=== PATIENT | male | born 1950 | race Caucasian/White ===

== ENCOUNTER 2021-07-20 17:32 | Outpatient (CLI) | payer MEDICARE, SELFPAY ==
[2021-07-20 18:10] LABS: Basophils Absolute Auto 0.1 K/mm3 (0.0-0.1); Basophils Percent Auto 0.8 % (0.2-1.2); Eosinophils Absolute Auto 0.2 K/mm3 (0-0.3); Eosinophils Percent Auto 2.6 % (0-4.4); Hematocrit 42.5 % (42.0-52.0); Hemoglobin 14.7 g/dL (14.0-18.0); Immature Granulocyte Absolute 0.02 K/mm3 (0.00-0.031); Immature Granulocyte Percent A 0.3 % (0-0.5); Lymphocytes Absolute Auto 2.82 K/mm3 (0.9-3.2); Mean Corpuscular HGB Conc 34.6 g/dl (32-36); Mean Corpuscular Hemoglobin 31.8 pg (26-34); Mean Platelet Volume 9.7 fl (7.4-10.4); Monocytes Absolute Auto 0.7 K/mm3 (0.1-0.6); Monocytes Percent Auto 9.4 % (2.6-8.5); Neutrophils Percent Auto 50.9 % (45.5-73.1); Platelet Count Result 199 k/mm3 (150-375); Red Blood Count 4.62 M/mm3 (4.6-6.20); Red Cell Distribution Width 12.7 % (11.5-14.5); White Blood Count 7.8 K/mm3 (4.5-10.0)
[2021-07-20 18:23] LABS: Alanine Aminotransferase 27 U/L (4-50); Albumin Level 4.4 g/dL (3.5-5.1); Alkaline Phosphatase 101 U/L (38-126); Anion Gap 9 mmol/L (8-16); Aspartate Amino Transferase 32 U/L (17-59); Bilirubin,Total 0.5 mg/dL (0.2-1.3); Blood Urea Nitrogen 15 mg/dL (9-20); Calcium 9.2 mg/dL (8.4-10.2); Carbon Dioxide 26 mmol/L (22-30); Chloride 105 mmol/L (98-107); Cholesterol 191 mg/dL (0-200); Estimated Glomerular Filt Rate > 60; Glucose 85 mg/dL (65-110); HDL Direct 42 mg/dL; Potassium 4.4 mmol/L (3.4-5.0); Sodium 140 mmol/L (137-145); Triglycerides 92 mg/dL (<150)
[2021-07-20 18:34] LABS: LDL Cholesterol Direct 132 mg/dL
[2021-07-25 16:28] LABS: Alpha Fetoprotein Tumor Marker 2.8 ng/mL (<6.1)
== END 2021-07-20 17:33 | disposition home or self-care (01) ==
PROVIDERS: PCP Internal Medicine; Visit Provider Internal Medicine
DX: K74.69 Other cirrhosis of liver (principal); E78.2 Mixed hyperlipidemia
CPT/HCPCS: 36415; 80053; 80061; 82105; 85025

== ENCOUNTER 2022-11-08 21:22 | Observation (INO) | payer MEDICARE, SELFPAY ==
[2022-11-08] VITALS (11 sets, daily range): BP systolic 134–164; BP diastolic 77–85; PULSE 80–118; RESP 15–25; TEMP 37.7; O2SAT 93–99
--- NOTE | ~2022-11-08 | XR_ITS ---
EXAMINATION: XR chest 1V portable Exam Date/Time: 11/08/2022 22:32 CDT HISTORY: SOB/cough FOR 3 DAYS, FEVER, HTN Comparison: None available. RESULT: Lines, tubes, and devices: Cholecystectomy clips. Lungs and pleura: Right lower lung scar/atelectasis. Calcified pulmonary granulomas. Cardiomediastinal silhouette: Stable. Other: No acute osseous or upper abdominal finding. IMPRESSION: No acute cardiopulmonary process. Reviewed, dictated and finalized at location K.
--- NOTE | 2022-11-08 21:28 | ECG_ITS ---
Measurements Intervals [place] Rate: 87 P: -1 WI: 196 QRS: -44 QRSD: 100 T: 44 QT: 358 QTc: 432 Interpretive Statements SINUS RHYTHM MARKED LEFT AXIS DEVIATION [QRS AXIS < -30] PATTERN CONSISTENT WITH PULMONARY DISEASE ABNORMAL ECG NO PREVIOUS ECG AVAILABLE FOR COMPARISON Electronically Signed On 11-09-2022 8:58:20 CDT by Rhett Bone M.D.
[2022-11-08 22:16] LABS: Influenza A QL RT-PCR Negative (Negative); Influenza B QL RT-PCR Negative (Negative); SARS-CoV-2 RNA PCR Negative (Negative)
[2022-11-08] MEDS: ALBUTEROL SULFATE NEB 2.5 MG/3 ML INH 5 MG INHALATION (23:06)
[2022-11-08] MEDS: IPRATROPIUM BR 0.02% INH SOLN 0.5 MG/2.5 ML VIAL 1 MG INHALATION (23:06)
--- NOTE | 2022-11-08 23:44 | ED.GENADULT ---
HPI - General Adult General Chief complaint: Upper Respiratory Infection Stated complaint: upper resp symptoms Time Seen by Provider: 11/08/22 22:13 History of Present Illness HPI narrative: This is a 71-year-old male with 3 days of cough and URI symptoms. He had a fever 100.9 at home. He has shortness of breath and chest pain when he coughs. He has taken some medicine with no relief. Denies other complaints. Related Data Allergies Allergy/AdvReac Type Severity Reaction Status Date / Time No Known Allergies Allergy Verified 11/09/22 00:46 [facility] Past Medical History Medical History BPH (benign prostatic hyperplasia) Hypertension Exam Narrative: APPEARANCE: patient looks unwell, 4-5 word dyspnea Head: atraumatic. EYES: EOMI, NOSE: Atraumatic NECK: Trachea midline RESPIRATORY: tachypneic, scattered rhonchi in the right, cough CARDIOVASCULAR: RRR, no peripheral edema ABDOMINAL: Non-distended nontender no guarding rebound MUSCULOSKELETAl: No obvious deformities NEURO: Alert. Moving 4/4 extremities SKIN:: Warm, dry. Normal color PSYCHIATRIC: Normal affect Course Vital Signs Vital signs: Vital Signs Temperature 99.9 F H 11/08/22 21:25 Pulse Rate 94 11/08/22 21:25 Respiratory Rate 19 11/08/22 21:25 Blood Pressure 164/85 H 11/08/22 21:25 Pulse Oximetry 95 11/08/22 21:25 Oxygen Delivery Room Air 11/08/22 21:25 Temperature 99.9 F H 11/08/22 21:25 Pulse Rate 98 11/09/22 00:45 Respiratory Rate 16 11/09/22 00:45 Blood Pressure 148/74 H 11/09/22 00:45 Pulse Oximetry 94 11/09/22 00:45 Oxygen Delivery Room Air 11/08/22 21:25 Medical Decision Making [facility] Narrative Medical decision making narrative: -Presentation: 71-year-old male presenting with cough and fever. -DDX includes but is not limited to: Pneumonia, URI, viral syndrome -Co-morbidities complicating care: hypertension, -Social determinants of health: patient is a retired pack worker supervisor. lives with his -External Chart Review: none -Hx from independent Sources: none -Discussion of Management/Consultants: Dilan-hospitalist -Independent interpretation of studies: chest x-ray was unremarkable. Chest x-rays are not sensitive for pneumonia. CBC and metabolic panel were within acceptable limits. Viral swabs were negative. Independent EKG interpretation: Rhythm [sinus], Rate [87], Ellis -[normal], [place] -[normal], QRS [narrow], QTC [normal], T waves -[negative for concerning inversions], ST Segments - [Negative for concerning elevations] Final interpretations: [Normal Sinus Rhythm] Dx tests considered but not ordered: -Procedures: -Interventions: Motrin, Tylenol, Robitussin, DuoNeb, ceftriaxone, Azithro -Shared decision making / Disposition: Chest x-ray was clear but the patient looks unwell. Had him do an ambulatory pulse ox test which resulted in desaturation to 89% and increase of 20 bpm in his heart rate. Patient will be admitted to the hospital for community-acquired pneumonia. -RX Vital Signs Vital Signs: Vital Signs Temperature 99.9 F H 11/08/22 21:25 Pulse Rate 94 11/08/22 21:25 Respiratory Rate 19 11/08/22 21:25 Blood Pressure 164/85 H 11/08/22 21:25 Pulse Oximetry 95 11/08/22 21:25 Oxygen Delivery Room Air 11/08/22 21:25 Temperature 99.9 F H 11/08/22 21:25 Pulse Rate 98 11/09/22 00:45 Respiratory Rate 16 11/09/22 00:45 Blood Pressure 148/74 H 11/09/22 00:45 Pulse Oximetry 94 11/09/22 00:45 Oxygen Delivery Room Air 11/08/22 21:25 Lab Data 11/09/22 00:05 11/09/22 00:05 Labs: Lab Results 11/08/22 11/09/22 Range/Units 21:30 00:05 WBC 7.8 (4.5-10.0) K/mm3 RBC 4.59 L (4.6-6.20) M/mm3 Hgb 14.4 (14.0-18.0) g/dL Hct 42.3 (42.0-52.0) % MCV 92.2 (80-100) fl MCH 31.4 (26-34) pg MCHC 34.0 (32-36) g/dl
[2022-11-08] MEDS: IBUPROFEN 400 MG TABLET 800 MG PO (23:49)
[2022-11-08] MEDS: ACETAMINOPHEN 500 MG TABLET 1000 MG PO (23:49)
[2022-11-08] MEDS: guaiFENesin/DEXTROMETHORPHAN 10 ML UDC PO (23:52)
[2022-11-09] VITALS (10 sets, daily range): BP systolic 112–148; BP diastolic 67–74; PULSE 68–107; RESP 15–25; TEMP 35.7–36.7; O2SAT 91–95; BMI 32.5
--- NOTE | 2022-11-09 | ECHO_ITS ---
Patient Info Name: Kota Fletcher Age: 71 years : 1950 Gender: Male Ht: 69 in Wt: 220 lbs BSA: 2.24 m2 HR: 72 bpm BP: 112 / 67 mmHg Technical Quality: Fair Exam Date: 11/09/2022 2:00 PM Exam Location: [facility] Exam Room: 301 Patient Status: Inpatient Admit Date: 11/09/2022 Staff Ordering Physician: Bebe Elizabeth MD Railroad Accountant: Francheska Adams RDCS Attending Provider: Harjinder Kong MD Exam Type: CA echo doppler color flow Study Info Indications - sob Complete two-dimensional, color flow and Doppler transthoracic echocardiogram is performed. Summary 1. Complete two-dimensional, color flow and Doppler transthoracic echocardiogram is performed. 2. Left ventricular chamber dimension is normal. 3. Left ventricular systolic function is normal, estimated at 60-65%. 4. The left ventricular diastolic function is grade I diastolic dysfunction. 5. E/e' 8 is minimally elevated. 6. There is mild aortic valve sclerosis. 7. No pulmonary hypertension, estimated pulmonary arterial systolic pressure is 27 mmHg. Left Ventricle E/e' 8 is minimally elevated. Left ventricular chamber dimension is normal. Left ventricular systolic function is normal, estimated at 60-65%. The left ventricular diastolic function is grade I diastolic dysfunction. Right Ventricle Right ventricular chamber dimension is normal. Right ventricular systolic function is normal. Left Atria Left atrial chamber dimension is normal. Right Atria Right atrial chamber dimension is normal. Aortic Valve The aortic valve is trileaflet. There is mild aortic valve sclerosis. There is no aortic valve stenosis. There is trace aortic valve regurgitation. Pulmonic Valve There is no pulmonic regurgitation. Mitral Valve There is no mitral valve stenosis. There is no mitral valve regurgitation. Tricuspid Valve There is no tricuspid valve regurgitation. No pulmonary hypertension, estimated pulmonary arterial systolic pressure is 27 mmHg. Pericardium/Pleural There is no pericardial effusion. Inferior Vena Cava Normal inferior vena cava with >50% collapse upon inspiration consistent with normal right atrial pressure, 5 mmHg. Aorta The aortic root size at the sinus of Valsalva is normal. Left Ventricular Outflow Tract Name Value Normal LVOT 2D LVOT Diameter 2.1 cm LVOT Doppler LVOT Peak Gradient 4 mmHg LVOT Mean Gradient 3 mmHg LVOT VTI 22 cm LVOT VTI/AV VTI Ratio 0.9 LVOT Stroke Volume 72 ml LVOT CO 16.9 l/min LVOT CI 7.6 l/min/m2 Pulmonic Valve Name Value Normal PV Doppler PV Peak Gradient 3 mmHg Mitral Valve Name Value
[2022-11-09 00:32] LABS: Basophils Percent Auto 0.4 % (0.2-1.2); Eosinophils Absolute Auto 0.2 K/mm3 (0-0.3); Eosinophils Percent Auto 2.7 % (0-4.4); Hematocrit 42.3 % (42.0-52.0); Hemoglobin 14.4 g/dL (14.0-18.0); Immature Granulocyte Absolute 0.02 K/mm3 (0.00-0.031); Immature Granulocyte Percent A 0.3 % (0-0.5); Lymphocytes Absolute Auto 3.02 K/mm3 (0.9-3.2); Lymphocytes Percent Auto 38.6 % (18.3-44.2); Mean Corpuscular Hemoglobin 31.4 pg (26-34); Mean Corpuscular Volume 92.2 fl (80-100); Monocytes Absolute Auto 0.9 K/mm3 (0.1-0.6); Monocytes Percent Auto 11.5 % (2.6-8.5); Neutrophils Absolute Auto 3.6 K/mm3 (1.3-6.7); Neutrophils Percent Auto 46.5 % (45.5-73.1); Platelet Count Result 162 k/mm3 (150-375); Red Blood Count 4.59 M/mm3 (4.6-6.20); Red Cell Distribution Width 12.6 % (11.5-14.5); White Blood Count 7.8 K/mm3 (4.5-10.0)
[2022-11-09 00:45] LABS: Anion Gap 8 mmol/L (8-16); Blood Urea Nitrogen 19 mg/dL (9-20); Calcium 8.5 mg/dL (8.4-10.2); Carbon Dioxide 23 mmol/L (22-30); Chloride 104 mmol/L (98-107); Estimated CRCL calculation 60 ml/min; Estimated Glomerular Filt Rate 60; Glucose 124 mg/dL (65-110); Potassium 3.9 mmol/L (3.4-5.0); Sodium 135 mmol/L (137-145)
--- NOTE | 2022-11-09 01:28 | PM.IMHP ---
H&P: HPI History of Present Illness Date/Time: 11/09/22 01:28 Chief Complaint: Cough Narrative: This is a 71-year-old male with past medical history significant for hypertension. Presents to the emergency room due to 3 days of cough dry, fevers, chills, generalized malaise, body aches and pains, poor appetite, shortness of breath. While in the emergency room patient received breathing treatment and when he was given the road test his oxygen saturation dropped significantly to 80% range and decision was made to admit the patient for further evaluation management and treatment. Patient tried several things at home with no results finally decided to come to the emergency room preliminary workup was significant for x-ray was reported as: EXAMINATION:? XR chest 1V portable Exam Date/Time:? 11/08/2022 22:32 CDT HISTORY: SOB/cough FOR 3 DAYS, FEVER, HTN ? Comparison:? None available. RESULT: Lines, tubes, and devices:? Cholecystectomy clips. Lungs and pleura:? Right lower lung scar/atelectasis. Calcified pulmonary granulomas. Cardiomediastinal silhouette:? Stable. Other:? No acute osseous or upper abdominal finding. ? IMPRESSION: No acute cardiopulmonary process. Review of Systems Review of Systems: Dry cough, shows shortness of breath, generalized malaise, chills, fevers, rigors, body aches and pains Constitutional: Constitutional: Reports chills, Reports fatigue, Reports fever(s), Reports lethargy, Reports malaise, Reports night sweats, Reports poor appetite and Reports weakness Eyes: Eyes: Denies change in vision ENT: Denies dysphagia and Denies odynophagia Cardiovascular: Cardiovascular: Denies chest pain, Denies leg edema, Denies palpitations and Denies dyspnea on exertion Respiratory: Respiratory: Denies change in phlegm color, Denies chest congestion, Reports cough, Denies excessive phlegm production, Reports dyspnea and Reports wheezing Gastrointestinal: Gastrointestinal: Denies abdominal pain, Denies dyspepsia, Denies heartburn, Denies diarrhea, Denies nausea and Denies vomiting Genitourinary: Genitourinary: Reports dysuria Musculoskeletal: Musculoskeletal: Reports myalgias and Reports muscle weakness Integumentary/Breasts: Skin/Breast: Denies rash Neurologic: Denies focal weakness and Denies Sensory deficit (Neuro) Psychiatric: Psychiatric: Reports no additional psychiatric complaints and Reports as per HPI Endocrine: Endocrine: Denies cold intolerance, Denies fatigue, Denies flushing, Denies heat intolerance, Denies polyphagia, Denies polydipsia and Denies palpitations Hematologic/Lymphatic: Hematologic/Lymphatic: Reports no additional hematologic/lymphatic complaints and Reports as per HPI Allergic/Immunologic: Allergic/Immunologic: Reports no additional allergic/immunologic complaints and Reports as per HPI PMFSH Past Medical History Medical History BPH (benign prostatic hyperplasia) Hypertension Meds Home Medications and Allergies Home Medications Medication Instructions Recorded Confirmed Type lisinopril 20 mg tablet 20 mg PO DAILY 11/09/22 11/09/22 History oxybutynin chloride 10 mg 10 mg PO DAILY 11/09/22 11/09/22 History tablet,extended release 24 hr verapamil 180 mg tablet,extended 180 mg PO DAILY 11/09/22 11/09/22 History release Allergies Allergy/AdvReac Type Severity Reaction Status Date / Time No Known Allergies Allergy Verified 11/09/22 00:46 Vital Signs Vital Signs - 24 hr 11/08/22 21:25 11/08/22 23:07 11/08/22 23:41 Temperature 99.9 F H Pulse Rate 94 84 101 H Respiratory Rate 19 21 H 20 Blood Pressure 164/85 H Pulse Oximetry 95 Oxygen Delivery Room Air 11/09/22 00:45 Temperature Pulse Rate 98 Respiratory Rate 16 Blood Pressure 148/74 H Pulse Oximetry 94 Oxygen Delivery Exam Narrative: Patient is laying in a stretcher Const: General: comfortable, no acut
--- NOTE | 2022-11-09 02:42 | PC.NURSE ---
Patient arrived on 3 Med-Surg on 02:35
[2022-11-09] MEDS: ENOXAPARIN 40 MG/0.4 ML SYRINGE SUB-Q (09:12)
[2022-11-09] MEDS: oxyBUTYnin CHLORIDE XL 5 MG TAB.ER.24 10 MG PO (11:37)
[2022-11-09] MEDS: VERAPAMIL HCL 180 MG TABLET ER PO (11:37)
[2022-11-09] MEDS: BENZONATATE 100 MG CAPSULE 200 MG PO (11:37)
[2022-11-09] MEDS: lisinopriL 20 MG TABLET PO (11:37)
[2022-11-09] MEDS: guaiFENesin 600 MG/DEXTROMETHORPHAN 30 MG SR TAB 12 HR 1 TAB PO (11:37)
[2022-11-09] MEDS: ACETAMINOPHEN 325 MG TABLET 650 MG PO (12:33)
--- NOTE | 2022-11-09 15:17 | PM.DS ---
DS: Admitting Diagnosis Discharge Date 11/09/22 Admitting Diagnosis Cough DS: Discharge Diagnosis Discharge Diagnosis (1) Hypertension: Code(s): I10 - Essential (primary) hypertension Status: Acute (2) Cough: Code(s): R05.9 - Cough, unspecified Status: Acute DS: Summary Hospital Course Reason for hospitalization: Cough Generalized weakness Hospital Course: 71-year-old male with past medical history significant for hypertension presented to ER due to 3 days of cough dry, fevers, chills, generalized malaise,, tested negative for COVID flu, CXR was unremarkable, echo was unremarkable. Started on cough suppressant. his symptoms could be likely 2/2 viral PNA. Has been feeling better, discharged home in stable condition. Status at Discharge Functional status at discharge: independent ambulation Overall status at discharge: patient is back to baseline Time Spent with Patient Time attestation: Total time spent providing and/or coordinating discharge services: Time spent: Greater than 30 minutes Exam Const: General: comfortable HENMT: Mouth: Yes moist mucous membranes Eyes: Sclera: sclerae normal Pupils: Equal, round and reactive pupils present Neck: Neck: supple Resp: Effort & Inspection: normal respiratory effort Auscultation: clear to auscultation bilaterally Cardio: Rate: regular rate Rhythm: regular rhythm GI: GI Palp: Yes Soft to palpation Auscultation: normal bowel sounds Skin: General skin exam: normal color Extrem: General: normal to inspection Psych: Mental Status: mental status grossly normal DS: Data Data Completed and Pending Labs on day of discharge: Labs from last 24 hours 11/09/22 11/08/22 00:05 21:30 WBC 7.8 RBC 4.59 L Hgb 14.4 Hct 42.3 MCV 92.2 MCH 31.4 MCHC 34.0 RDW 12.6 Plt Count 162 MPV 10.0 Immature Gran % (Auto) 0.3 Neut % (Auto) 46.5 Lymph % (Auto) 38.6 [place] % (Auto) 11.5 H Eos % (Auto) 2.7 Baso % (Auto) 0.4 Lymph # (Auto) 3.02 [place] # (Auto) 0.9 H Eos # (Auto) 0.2 Baso # (Auto) 0.0 Abs Immat Gran (auto) 0.02 Absolute Neuts (auto) 3.6 Absolute Nucleated RBC 0.0 Nucleated RBC % 0.0 Sodium 135 L Potassium 3.9 Chloride 104 Carbon Dioxide 23 Anion Gap 8 BUN 19 Creatinine 1.20 Estim Creat Clear Calc 60 Estimated GFR 60 Glucose 124 H Calcium 8.5 Influenza A (RT-PCR) Negative Influenza B (RT-PCR) Negative SARS-CoV-2 RNA (RT-PCR) Negative Discharge Plan Discharge Attending physician on discharge: Bebe Elizabeth Discharging Clinician: Bebe Elizabeth Patient Disposition: Home, Self-Care Activity: as tolerated Diet: as tolerated Patient Instructions: Antibiotic Form Stand Alone Forms: General Discharge Information Follow-up/Referrals: Gail,Neel No MD [Primary Care Provider] - 2 Weeks Discharge Medications: New Mucinex DM 30-600 mg Tablet Extended Release 12 Hr 1 tab PO Q12HR Qty: 20 0RF Continued oxybutynin chloride 10 mg tablet extended release 24hr 10 mg PO DAILY lisinopril 20 mg tablet 20 mg PO DAILY verapamil 180 mg tablet extended release 180 mg PO DAILY alprazolam 0.5 mg tablet 0.5 mg PO BID PRN (Reason: Anxiety) Date of admission: 11/09/22 01:30 Primary Care Provider: Gail,Neel No Admitting Provider: Harjinder Kong V. Attending physician on admission: Harjinder Kong V. Condition: Improved [facility] Discharge Hospital Discharge: 28711 Hosp D/C >30 Min
--- NOTE | 2022-11-09 15:21 | PCCCNOTE ---
On 11/09/22, the student, [Karissa Resendiz], provided care and completed [facility] documentation on this patient. I have reviewed the student's documentation and agree with the findings.
== END 2022-11-09 16:27 | disposition home or self-care (01) ==
LOC: ANHED 11-09 00:01 → ANH3MEDSUR 11-09 15:17
PROVIDERS: Admitting Provider Internal Medicine; Emergency Provider Emergency Medicine; PCP Internal Medicine; Visit Provider Internal Medicine
DX: J18.9 Pneumonia, unspecified organism (principal); I11.9 Hypertensive heart disease without heart failure; N40.0 Benign prostatic hyperplasia without lower urinary tract symptoms; R06.82 Tachypnea, not elsewhere classified; R94.31 Abnormal electrocardiogram [ECG] [EKG]; Z20.822 Contact with and (suspected) exposure to COVID-19; I35.8 Other nonrheumatic aortic valve disorders; R63.0 Anorexia; Z68.32 Body mass index [BMI] 32.0-32.9, adult; Z79.899 Other long term (current) drug therapy
CPT/HCPCS: 36415; 71045; 80048; 85025; 87636; 93005; 93306; 94640; 96365; 96367; 96372; 99285; A9270; G0378; J0456; J0696; J1650

== ENCOUNTER 2022-12-21 19:04 | Emergency (ER) | payer MEDICARE, SELFPAY ==
--- NOTE | ~2022-12-21 | XR_ITS ---
EXAMINATION: XR chest 1V portable INDICATION: Chest pain TECHNIQUE: Portable AP chest at 2003 hours COMPARISON: 11/08/2022 FINDINGS: There is mild atelectasis of the lung bases. No pleural effusion or pneumothorax. The cardi omediastinal silhouette is normal. IMPRESSION: 1. Mild atelectasis of the lung bases. Reviewed, dictated and finalized at location F.
--- NOTE | ~2022-12-21 | CT_ITS ---
EXAMINATION: CT chest abdomen pelvis w con DATE: 12/21/2022 20:52 INDICATION: Left upper quadrant and chest pain after fall TECHNIQUE: Transaxial computed tomographic images of the chest, abdomen, and pelvis were obtained aft er the administration of 100 cc of Omnipaque 350 intravenous contrast. The dose-length product (DLP) was 1396.83 mGy-cm. Automated exposure control and iterative reconstruction technique were employed. COMPARISON: None FINDINGS: CHEST CT: There is dependent atelectasis of the lower lobes. No pleural effusion or pneumothorax. There are nod ules measuring 4 mm and 9 mm in the right lower lobe. No pathologically enlarged thoracic lymph nodes are identified. The heart size is normal. Mild bilateral gynecomastia is noted. There is a small sli ding hiatal hernia. There are acute lateral fractures of the left eighth and ninth ribs. ABDOMEN/PELVIS CT: The gallbladder is surgically absent. The liver, pancreas, and adrenal glands are normal. Punctate ca lcifications in an otherwise normal spleen likely represent healed granulomatous disease. The kidneys are unremarkable. No pathologically enlarged abdominal or pelvic lymph nodes are identified. There i s calcified atherosclerosis of the aorta and many of the other arteries. No free intraperitoneal gas or evidence of bowel obstruction. Colonic diverticulosis is present without evidence of diverticuliti s. IMPRESSION: 1. Acute lateral fractures of the left eighth and ninth ribs. 2. Mild dependent atelectasis of the lungs. 3. No acute abnormality of the abdomen or pelvis. 4. Indeterminate nodules of the right lung measuring up to 9 mm. Follow-up CT in three months is lavern mmended. Reviewed, dictated and finalized at location F. IMPRESSION: 1. Acute lateral fractures of the left eighth and ninth ribs. 2. Mild dependent atelectasis of the lungs. 3. No acute abnormality of the abdomen or pelvis. 4. Indeterminate nodules of the right lung measuring up to 9 mm. Follow-up CT i n three months is recommended.
[2022-12-21 19:07] VITALS: BP 133/77; PULSE 85; RESP 19; TEMP 36.4; O2SAT 94
[2022-12-21 19:25] VITALS: PULSE 95; RESP 19
[2022-12-21 19:30] VITALS: PULSE 87; RESP 20
[2022-12-21] MEDS: MORPHINE SULFATE (*CRX) 2 MG/ML INJ IV PUSH (19:40)
[2022-12-21] MEDS: ONDANSETRON INJ 4 MG/2 ML VIAL IV PUSH (19:40)
[2022-12-21 20:03] LABS: Alanine Aminotransferase 29 U/L (6-50); Albumin Level 4.4 g/dL (3.5-5.1); Alkaline Phosphatase 110 U/L (38-126); Anion Gap 10 mmol/L (8-16); Aspartate Amino Transferase 31 U/L (17-59); Bilirubin,Total 0.5 mg/dL (0.2-1.3); Blood Urea Nitrogen 14 mg/dL (9-20); Carbon Dioxide 23 mmol/L (22-30); Chloride 109 mmol/L (98-107); Estimated CRCL calculation 56 ml/min; Estimated Glomerular Filt Rate 55; Glucose 122 mg/dL (65-110); Potassium 3.7 mmol/L (3.4-5.0); Sodium 142 mmol/L (137-145)
[2022-12-21 20:04] LABS: Prothrombin Time 13.6 Seconds (11.1-14.7)
--- NOTE | 2022-12-21 20:43 | WC.ED.TRAUMA ---
HPI - Trauma General Chief Complaint: Trauma Stated Complaint: 10 foot fall, lower extremity pain Time Seen by Provider: 12/21/22 19:12 History of Present Illness HPI narrative: This is a 71-year-old male with past medical history of hypertension, who presents emergency department after a fall with left-sided chest pain. The patient states he was repairing a deck, when he stepped into a hole, falling and striking the left side of his chest on the deck. He complains of 9/10 left-sided rib pain, aggravated by movement. He also complains of 4/10 right buttock pain. He denies other chest pain, shortness of breath, loss of consciousness or weakness/numbness. Related Data Home Medications Medication Instructions Recorded Confirmed alprazolam 0.5 mg tablet 0.5 mg PO BID PRN Anxiety 11/09/22 11/09/22 lisinopril 20 mg tablet 20 mg PO DAILY 11/09/22 11/09/22 oxybutynin chloride 10 mg 10 mg PO DAILY 11/09/22 11/09/22 tablet,extended release 24 hr verapamil 180 mg tablet,extended 180 mg PO DAILY 11/09/22 11/09/22 release Allergies Allergy/AdvReac Type Severity Reaction Status Date / Time No Known Allergies Allergy Verified 11/09/22 00:46 Review of Systems Review of Systems: CONSTITUTIONAL: Denies fever, chills, or sweats. CARDIOVASCULAR: Left-sided chest wall pain denies palpitations, or edema. RESPIRATORY: Denies cough or dyspnea. GASTROINTESTINAL: Denies abdominal pain, nausea, vomiting, or diarrhea. GENITOURINARY: Denies dysuria or hematuria. SKIN: Denies rash or itching. MUSCULOSKELETAL: Denies back pain, joint pain, or myalgia. NEUROLOGIC: Denies headache, numbness, dizziness, or weakness. PSYCHIATRIC: Denies anxiety or depression. [facility] Past Medical History Medical History BPH (benign prostatic hyperplasia) Hypertension Family History Family History Father FH: coronary artery bypass surgery Social History Social History Smoking status: Never smoker Alcohol intake: former Drinks per week: 84 Substance use: former Substance use type: does not use Lack of Transportation: No Lack of Food: Never True Current Housing: I Have Housing Concerned About Future Housing: No Difficulty Paying Gas/Electric Bills: No Difficulty Paying for Meds: No Currently Unemployed: No Education: High School Diploma/GED Difficulty w/ Childcare or Family Care: No Spiritual care concerns: No Exam Narrative: GENERAL: Well-developed, well-nourished, and in no acute distress. HEAD: Normocephalic, atraumatic. EYES: PERRLA and EOMI. ENT: Nares clear, no rhinorrhea or epistaxis. Mucous membranes moist. Oropharynx without tonsillar hypertrophy exudate or other lesions. NECK: Supple. No adenopathy or masses. No midline spine tenderness to palpation, no step-off or crepitus CHEST: Tender to palpation over the left chest wall at approximately ribs 7 through 10 between the midaxillary and midclavicular lines. Lungs clear to auscultation. No respiratory distress. No wheezes rales or rhonchi HEART: Regular rate and rhythm. No murmur heard. Normal peripheral pulses. ABDOMEN: Soft, nontender, nondistended, normal active bowel sounds. BACK: No midline spine tenderness to palpation, no step-off or crepitus EXTREMITIES: A 1 x 2 area of ecchymosis is noted to the medial aspect of the right buttock. Normal range of motion. No edema. SKIN: Ecchymosis and abrasion is noted to the left chest wall overlying ribs 7 through 10 between the midaxillary and midclavicular lines. Warm, dry, no rash. NEURO: No focal deficits. Alert and oriented x3. PSYCH: Normal mood and affect. Course Course Emergency Course: 20:10 - My review of the patient's chest x-ray is not concerning for pneumothorax or hemothorax. 21:45 - CT chest abdomen pelvis demonstrates
[2022-12-21] MEDS: LIDOCAINE 5% PATCH 2 PATCH TRANSDERM (21:52)
[2022-12-21] MEDS: oxyCODONE/ACETAMINOPHEN (*CRX) 10-325 MG TABLET 1 TAB PO (22:15)
== END 2022-12-21 22:22 | disposition home or self-care (01) ==
PROVIDERS: Emergency Provider Preventive Medicine Aerospace Medicine; PCP Internal Medicine
DX: S22.42XA Multiple fractures of ribs, left side, initial encounter for closed fracture (principal); N40.0 Benign prostatic hyperplasia without lower urinary tract symptoms; I10 Essential (primary) hypertension; R91.8 Other nonspecific abnormal finding of lung field; W13.8XXA Fall from, out of or through other building or structure, initial encounter
CPT/HCPCS: 36415; 71045; 71260; 74177; 80053; 85610; 96374; 96375; 99284; A9270; J2270; J2405; Q9967

== ENCOUNTER 2023-05-27 19:38 | Emergency (ER) | payer MEDICARE, SELFPAY ==
[2023-05-27 19:56] VITALS: BP 166/74; PULSE 71; RESP 18; TEMP 36.4; O2SAT 98
--- NOTE | 2023-05-27 19:59 | ED.EYEPROB ---
HPI - Eye Problem General Chief complaint: Eye Problems Stated complaint: lt eye irritation Time Seen by Provider: 05/27/23 19:59 Source: patient Mode of arrival: ambulatory Limitations: no limitations History of Present Illness HPI Narrative: 72-year-old male presents with pain, redness, light sensitivity and watering to left eye. Reports approximately 2 hours ago he was sawing wood and saw dust flew into left eye. States that he began rubbing at left eye and pain worsened. Use an eye wash bottle to clean left eye out but still having symptoms. Patient reports cataract surgery a few months ago. Does have an eye doctor. All systems reviewed and negative except as noted Related Data Home Medications Medication Instructions Recorded Confirmed alprazolam 0.5 mg tablet 0.5 mg PO BID PRN Anxiety 11/09/22 11/09/22 lisinopril 20 mg tablet 20 mg PO DAILY 11/09/22 11/09/22 oxybutynin chloride 10 mg 10 mg PO DAILY 11/09/22 11/09/22 tablet,extended release 24 hr verapamil 180 mg tablet,extended 180 mg PO DAILY 11/09/22 11/09/22 release Allergies Allergy/AdvReac Type Severity Reaction Status Date / Time No Known Allergies Allergy Verified 11/09/22 00:46 Review of Systems Review of Systems: CONSTITUTIONAL: Denies fever, chills, or sweats. EYES: Denies visual changes . Reports redness, drainage, light sensitivity, pain to left eye. ENT: Denies rhinorrhea, congestion, sore throat, or otalgia. CARDIOVASCULAR: Denies chest pain, palpitations, or edema. RESPIRATORY: Denies cough or dyspnea. GASTROINTESTINAL: Denies abdominal pain, nausea, vomiting, or diarrhea. GENITOURINARY: Denies dysuria or hematuria. SKIN: Denies rash or itching. MUSCULOSKELETAL: Denies back pain, joint pain, or myalgia. NEUROLOGIC: Denies headache, numbness, or weakness. PSYCHIATRIC: Denies anxiety or depression. All other systems reviewed are negative, except as documented in HPI. [facility] Past Medical History Medical History BPH (benign prostatic hyperplasia) Hypertension Family History Family History Father FH: coronary artery bypass surgery Social History Social History Smoking status: Never smoker Alcohol intake: former Drinks per week: 84 Substance use: former Substance use type: does not use Lack of Transportation: No Lack of Food: Never True Current Housing: I Have Housing Concerned About Future Housing: No Difficulty Paying Gas/Electric Bills: No Difficulty Paying for Meds: No Currently Unemployed: No Education: High School Diploma/GED Difficulty w/ Childcare or Family Care: No Spiritual care concerns: No Comments At time of signature, agree with nursing past medical, surgical, social and family history. There is no relevant family history pertinent to the presenting complaint. Exam Narrative: GENERAL: This is a well-nourished, well-developed patient, in no apparent distress. HEAD: normocephalic, atraumatic. EYES: PERRL. Left sclera is erythematous, right normal. Topical anesthetic was instilled with good anesthesia using 1gtt of opth anesthetic agent (tetracaine). Fluorescein stain of the L eye was performed. Corneal abrasion noted at 12 o'clock. NO FB, ulcer or dendritic lesions. Upper lid was everted and no FB or lesions were noted. Normal saline irrigation eye solution was performed and the patient tolerated the procedure well, no adverse reaction or complications.Vision is grossly intact. EARS: External ears normal NOSE: External nose normal NECK: Neck supple, non-tender without lymphadenopathy, masses or thyromegaly. CARDIOVASCULAR: Regular rate and rhythm without murmurs, gallops, or rubs. RESPIRATORY: Clear to auscultation. Breath sounds equal bilaterally. No wheezes, rales, or rhonchi. SKIN: warm, Dry, inta
[2023-05-27] MEDS: TETRACAINE HCL 0.5% OPHTH SOLN 4 ML BTL 2 DROP LEFT EYE (20:12)
[2023-05-27] MEDS: DACRIOSE EYE IRRIGATION 118 ML BOTTLE 20 ML LEFT EYE (20:12)
[2023-05-27] MEDS: FLUORESCEIN SOD 1 MG/STRIP LEFT EYE (20:12)
== END 2023-05-27 20:18 | disposition home or self-care (01) ==
PROVIDERS: Emergency Provider Nurse Practitioner Family; PCP Internal Medicine
DX: S05.02XA Injury of conjunctiva and corneal abrasion without foreign body, left eye, initial encounter (principal); X58.XXXA Exposure to other specified factors, initial encounter; N40.0 Benign prostatic hyperplasia without lower urinary tract symptoms; I10 Essential (primary) hypertension
CPT/HCPCS: 99213; A9270; G0463